=== PATIENT | female | born 1945 | race Caucasian/White ===

== ENCOUNTER 2022-05-26 12:52 | Outpatient (CLI) | payer MEDICARE, SELFPAY ==
--- NOTE | 2022-05-26 13:00 | MR_ITS ---
[facility] [address] [facility] [address] Phone:?[phone] Fax:?[phone] Referring Physician Information: Brannon Rodriguez M.D. [address] [facility] [address] Phone:?[phone] Fax:?[phone] Patient:Timbo Rodney D.O.B:?1945 Sex:?Female Phone:? [facility] MRN:?[id number] Exam Date:?05/26/2022 ? EXAM: MRI EXAMINATION OF THE LEFT HIP CLINICAL INFORMATION: The patient is a 77-year-old with left hip pain. Evaluate for osteoarthritis or degenerative change. PRIOR SURGERY: None reported. COMPARISON STUDIES: Comparison is made to prior radiographs dated 05/13/2022. TECHNICAL INFORMATION: Using a 1.5T MR scanner and a localizing surface coil: 4.0 mm?coronals: PD, T2 4.0 mm?sagittals: PD, T2 3.0 mm?oblique axials: PD 4.0 mm?straight axials: T2FS 4.0 mm?coronals: T1, STIR of pelvis and hips FINDINGS: Hip joint: Moderate osteoarthritic changes of the left hip are present with marrow edema and subcortical cystic change along the articular surfaces. Spurring along the articular margins can be seen. A mild effusion is noted. Articular Cartilage: Full-thickness and near full-thickness chondral loss can be seen along the weightbearing surfaces of the left hip. No well-defined intra- articular loose bodies are noted. Labrum: Broad-based tearing and degeneration of the entire acetabular labrum can be seen. No definite paralabral ganglion cyst formation is noted. Proximal femur: Osteoarthritic changes of the proximal femur can be seen with marrow edema and areas of subcortical cystic change along the articular surfaces. Spurring along the articular margins can be seen. There is no definite evidence for fracture or stress injury. No definite findings are seen to suggest avascular necrosis. Subcortical sclerosis along the articular surfaces can also be seen. Bony prominence of the anterior and anterosuperior aspects of the left femoral head neck junction can be seen, in keeping with cam-type morphology. The alpha angle is approximately 80 degrees. Acetabulum: Osteoarthritic changes of the acetabulum are present with cortical irregularity and subcortical cystic change. Spurring along the articular margins can be seen. No evidence for fracture is identified. There is no definite retroversion or osseous over coverage. There are no definite abnormalities in acetabular morphology. The ligamentum teres is intact. Myotendinous Structures: The greater trochanteric attachments of the gluteus medius and gluteus minimus are normal. The common hamstring tendon origin is normal. The adductors and flexors appear unremarkable. Bursae: There is no evidence of iliopsoas, greater trochanteric or ischial bursal inflammation. Pelvic soft tissues: The soft tissues of the pelvis appear otherwise preserved. There is no evidence of soft tissue mass or adenopathy. No acute intrapelvic abnormalities are seen. Pelvic osseous structures: Large bnjan-mk-ajsu coronal survey images show no evidence of a pelvic fracture or demonstrable stress injury. The sacrum and SI joints appear normal. The symphysis pubis is normal in appearance. Osteoarthritic changes of the right hip are also noted. Lumbosacral junction: Degenerative disc disease can be seen involving the lumbosacral junction. CONCLUSION: 1. Moderate osteoarthritic changes of the left hip as described above. 2. No evidence for fracture or avascular necrosis can be seen. 3. No musculotendinous abnormalities about the left hip are identified. 4. No abnormal bursal fluid collections are seen. 5. Right hip osteoarthritis and degenerative disc disease of the lumbosacral junction are also seen. AEC Electronically signed on 05/27/2022 9:38:00 AM by Aries Ulloa M.D.
--- NOTE | 2022-05-26 13:45 | MR_ITS ---
[facility] [address] [facility] [address] Phone:?[phone] Fax:?[phone] Referring Physician Information: Brannon Rodriguez M.D. [address] [facility] [address] Phone:?[phone] Fax:?[phone] Patient:?Cherelle Rodney D.O.B:?1945 Sex:?Female Phone:? [facility] MRN:?[id number] Exam Date:?05/26/2022 ? EXAM:?MR LUMBAR SPINE WITHOUT CONTRAST CLINICAL INFORMATION: Low back and left hip pain. COMPARISON: None.?CONTRAST:?None.?SEDATION:?None. TECHNICAL INFORMATION: Imaging was performed at [facility]. Sagittal and axial T1/ FSE T2, sagittal STIR and coronal T1 images were obtained through the lumbar spine. INTERPRETATION: L5-S1:?Mild degeneration with 3 mm spondylolisthesis, hypertrophic and fused facet joints and no spinal stenosis or impingement. L4-5: Facet hypertrophy, mild central canal narrowing and bulge, no herniation or neural impingement and patent foramina. L3-4: Bulge and facet hypertrophy with out central stenosis. Ganglia exit without impingement. L2-3: Bulge abuts dural sac without central or foraminal stenosis. Unremarkable facet joints. L1-2: Moderate to severe degeneration, bulge and no central stenosis. Mild facet hypertrophy and patent foramina. T12-L1: Severe disc space narrowing, a flat cranially extruded disc herniation measures 3 mm AP and extrudes cranially for 14 mm. This mildly flattens the dural sac without stenosis or neural impingement. Mild facet degeneration and patent foramina. T11-12: Moderate degeneration, bulge abuts dural sac without stenosis or cord contact and right facet hypertrophy without foraminal stenosis. Osseous Structures: Fat suppressed images are negative for acute or subacute fractures. Modic 1 endplate marrow changes and T11-12 and T12-L1. Paraspinous Soft Tissues: No mass lesions. Conus, Cord and Cauda Equina: Normal position conus and no evidence of intradural mass or arachnoiditis. CONCLUSION: 1. No acute or subacute fractures. 2. Multilevel spondylosis including Modic 1 endplate marrow changes at T11-12 and T12-L1. 3. Flat cranially extruded disc herniation at T12-L1 abuts the dural sac. 4. No significant spinal stenosis. 5. Multilevel chronic hypertrophic facet degeneration, as reported. Electronically signed on 05/27/2022 10:59:00 AM by Joey Moses M.D.
== END 2022-05-26 12:53 | disposition home or self-care (01) ==
PROVIDERS: PCP Internal Medicine; Visit Provider Family Medicine
DX: M54.50 Low back pain, unspecified (principal); M25.552 Pain in left hip; M79.605 Pain in left leg; M47.894 Other spondylosis, thoracic region; M16.12 Unilateral primary osteoarthritis, left hip
CPT/HCPCS: 72148; 73721

== ENCOUNTER 2022-07-13 13:30 | Outpatient (RCR) | payer MEDICARE, SELFPAY ==
--- NOTE | 2022-06-22 12:09 | PT.OPEX ---
PT [place] Outpatient Eval PT [facility] Outpatient Eval Start: 06/22/22 11:06 Freq: Status: Active Protocol: Document 06/22/22 11:06 ARR (Rec: 06/22/22 12:06 ARR [id number]) E-signed By Ninfa Kaminski DPGisella Physical Therapy Outpatient Evaluation Insurance Information Insurance Name Medicare B,[employer] Medical Diagnosis M54.50 low back pain G89.29 other chronic pain M79.605 pain in left leg Treating Diagnosis M48.06 lumbar spinal stenosis M25.552 left hip pain M25.652 left hip stiffness Referring MD Brannon Rodriguez MD ([facility]) Subjective Subjective Onset of pain with back going down leg on the left ongoing off/on the last year or so but worsening over time. Increases in pain: hard to walk, standing, occasional waking at night. Occasional buckling or giving way. Location of pain: low back, L buttock, down to knee. Thought it was the knee that was the problem. When took x-rays found it was the hip. After surgery will be doing therapy as well. PMHx: hysterectomy, L TKA, lung surgery. Imaging as noted below. SUYAPA scheduled for 07/20. Pt notes having torn RC on R side - can't be repaired, recommended to have total shoulder. -L hip x-ray 05/13/22: severe bilateral hip osteoarthrosis with cgnt-he-dsgn joint space loss. Subchondral sclerosis. Subchondral cystic change greater on the left than the right. Osteophytes around the femoral head/neck junction and lateral acetabulum. -Spine x-rays 05/13/22: severe bilateral hip osteoarthrosis with oefa-on-kbyt joint space loss. Subchondral sclerosis. Subchondral cystic change greater on the left than the right. Osteophytes around the femoral head/neck junction and lateral acetabulum. -LS MRI 05/26/22: severe bilateral hip osteoarthrosis with pxyz-ic-iywz joint space loss. Subchondral sclerosis. Subchondral cystic change greater on the left than the right. Osteophytes around the femoral head/neck junction and lateral acetabulum. Objective Other/Pertinent Objective Eval: 06/22/22 Posture: Elevated IC on L by 2 thumbwidths, loss of LS lordosis, inc'd TS kyhposis SLS (30 sec): <10 sec ea side with moderate pelvic drop on L Gait: shuffling gait pattern with dec'd heel-toe pattern, bilat knee flexion throughout gait cycle, reduced hip ext bilat. Antalgic gait RANGE OF MOTION: Lumbar ROM: -Flx: fingertips to shins, dec 'd mobility through LS/TS no pain -Ext: 75% limitation with no pain end ranges -R Rot: 50% limitation in mvmt -L Rot:50% limitation in mvmt LE ROM (R/L): -Hip ER90: 50 R / 30 L -Hip IR90: 10 R / 0 L -Hip flex: 120 R / 95 L -hip ext: passively in sidelying lacking nearly 10* on R/L -Hip Abd supine: 30* L, 50 R STRENGTH: LE Strength (R/L) -Glut medius: 2+ bilat SPECIAL TESTS LE Flexibility (R/L) -Hamstring: neg bilat -Piriformis: pos bilat -Prone knee bend: 90* on L, > 110 on R -Hip abd: pos bilat -Quincy Test: pos bilat in sidelying - Rama?s Test pos bilat in sidelying Hip (R/L): -JASSI: pos bilat -Hip Scour: pos bilat -FADIR: pos bilat Functional Test Performed & Score LEFS 20/80 Assessment Assessment/Impression Pt is a 77 y/o female who presents with concerns of L hip pain, low back pain, and pain down L leg to knee. Signs and symptoms likely multifactorial from significant loss of hip ROM following capsular pattern ( lacking 10* from extension, 30 * ER, and flexion to 95), in addition to LS stiffness secondary to stenosis with loss of AROM following capsular pattern greatest in extension, rotation and side bending. Pt is scheduled for SUYAPA 07/20/22. Patient also has notable objective findings including glut medius weakness , gait abnormalities, hip flexor/quad tightness also likely contributing to the problem. Patient is a good candidate for skilled therapy to target deficits described above. Skilled PT intervention is necessary for use of therapeutic exercise manual therapy, neuromuscular re- education, gait training, and therapeutic activity. Functional impairments include difficulty with: walking and standing. See appropriate sections of PT eval for complete list of goals and POC . D/C plan and criteria is for pt to achieve the goals as listed below or until max rehab potential is met. Pt was agreeable with plan of care and goals established. Plan of Care Physical Therapy Goals STG (within 2 visits) 1) Pt will initiate HEP without increased pain/ symptoms LTG (within 5 visits) 1) Pt will be indep with HEP for nursing home management of pain/symptoms 2) Pt will report at least 40% improvement in pain/symptoms since start of PT for return to PLOF 3) Pt will demonstrate improved prone knee flexion to at least 100* on L for improved mobility for gait 4) Pt will demonstrate LEFS score >29/80 Treatment Plan/Direct Interventions Electrical Stimulation,Gait Training,Joint Mobilization, Manual Therapy,Neuromuscular Re-ed,Therapeutic Activities, Therapeutic Exercises,Traction (Mechanical) Frequency/Duration 1x/wk x 5 visits in 60 days Patient Will Be Discharged From Therapy Skills [facility],Independent w/ HEP Evaluation Billing Untimed Code Treatment Minutes 25 Complexity Moderate Certification Information Initial Certification Date 06/22/22 Ending Certification Date 08/21/22 Provider Signature Shows Agreement With POC & Medical Necessity Physician Signature & Date Requested Please Sign/Date Here Physician Comment/Change : Physician NPI Number #
== END 2022-07-13 14:10 | disposition home or self-care (01) ==
PROVIDERS: PCP Internal Medicine; Visit Provider Family Medicine
DX: M16.12 Unilateral primary osteoarthritis, left hip (principal); Z51.89 Encounter for other specified aftercare
CPT/HCPCS: 97110; 97162

== ENCOUNTER 2022-07-19 09:26 | Outpatient (CLI) | payer MEDICARE, SELFPAY | END 2022-07-19 09:27 | disposition home or self-care (01) | PROVIDERS: PCP Internal Medicine; Visit Provider Orthopaedic Surgery Sports Medicine | DX: Z01.818 Encounter for other preprocedural examination (principal) | CPT/HCPCS: 36415; 86850; 86900; 86901 ==

== ENCOUNTER 2022-07-20 06:18 | Day surgery (SDC) | payer MEDICARE, SELFPAY ==
[2022-07-20] VITALS (28 sets, daily range): BP systolic 103–184; BP diastolic 50–89; PULSE 50–76; RESP 14–20; TEMP 35.9–36.8; O2SAT 91–98; BMI 31.7
[2022-07-20] MEDS: ACETAMINOPHEN 500 MG TABLET 1000 MG PO ×3 (06:40→20:25)
[2022-07-20] MEDS: CELECOXIB 200 MG CAPSULE PO ×2 (06:40→20:25)
[2022-07-20] MEDS: OXYCODONE (CR) 10 MG TAB.ER.12H PO (06:40)
[2022-07-20] MEDS: SODIUM CHLORIDE 0.9 % (FLUSH) 10 ML SYRINGE IVF (06:45)
[2022-07-20] MEDS: LACTATED RINGERS 1000 ML 1,000 ML 100 ML IV ×2 (06:45→08:32)
[2022-07-20] MEDS: MIDAZOLAM HCL 1 MG/ML inj IVP (07:07)
[2022-07-20] MEDS: fentaNYL 100 MCG/2 ML inj IVP (07:07)
--- NOTE | 2022-07-20 07:15 | P.NB_ITS ---
Nerve Block Nerve Block Time Seen by Provider: 07:13 Date Seen: 07/20/22 Type of block requested by surgeon for post-operative analgesia: KAYCEE/LFCN Side: left Time out performed: Yes Verification of patient name: Yes Verification of date of : Yes Site marking: site marked Name of person performing procedure: Terrell Continuous monitoring Was continuous monitoring of O2 sat, B/P, finishing room supervisor, recorded every 15 minutes?: Yes Procedure Checklist: sterile prep, needles and gloves Ultrasound guided. Images saved: Yes Medications given in 5ml increments after negative aspiration: Ropivicaine %: 0.5 mL: 30 Needle gauge: 20 Decadron (mg): 10 Precedex (mcg): 25 Patient tolerated procedure well: Yes Additional comments: Needle noted below psoas tendon needle noted adjacent to LFCN Block Charges Block Charge (with Pro Fee): Other Periph Nerve Block Use of Ultrasound Machine for Block: Yes- US Guidance/pain block
--- NOTE | 2022-07-20 07:16 | W.ANESCHARGE ---
Anesthesia Charges Start Date/Time Anesthesia Start Date: 07/20/22 Anesthesia Start Time: 07:22 Stop Date/Time Anesthesia Stop Date: 07/20/22 Anesthesia Stop Time: 09:49 Summary Extremes of Age - Over 70 or under 1: MDA
--- NOTE | 2022-07-20 07:18 | CRLHL7_ITS ---
For Patients: As a result of the Cures Act, medical imaging exams and procedure reports are released immediately into your electronic medical record. You may view this report before your referring provider. If you have questions, please contact your health care provider. Indication: s/p Total hip arthroplasty Technique: AP hip center pelvis and lateral view left hip Findings/Impression: Hardware from a left total hip arthroplasty is in satisfactory position. Bone alignment is normal. No sign of acute fracture. Postop changes are within normal limits. Degenerative joint disease right hip. Dictated by Perry Grande MD @ 07/20/2022 10:53:51 AM (Electronically Signed)
--- NOTE | 2022-07-20 07:18 | SUR.PREOP ---
TIME?OUT:?07 PT/OLEGARIO RN/Paul SHELL MDA?VERIFICATION?OF?SURGICAL?SITE,?PROCEDURE,?AND?CONSENT OBTAINED?PRIOR?TO?INVASIVE?PROCEDURE.
--- NOTE | 2022-07-20 07:30 | CRLHL7_ITS ---
For Patients: As a result of the Cures Act, medical imaging exams and procedure reports are released immediately into your electronic medical record. You may view this report before your referring provider. If you have questions, please contact your health care provider. Indication: Hip replacement surgery Technique: AP hip fluoroscopic image. Fluoroscopy time 39.1 seconds. Findings/Impression: Hardware from a left total hip arthroplasty is in satisfactory position. Dictated by Perry Grande MD @ 07/20/2022 10:53:12 AM (Electronically Signed)
[2022-07-20] MEDS: CEFAZOLIN 2 GM in 0.9 % SODIUM CHLORIDE Mini-bag 100 ML IVPB (07:34)
[2022-07-20] MEDS: TRANEXAMIC ACID 100 MG/ML INJ 1000 MG IV (07:35)
--- NOTE | 2022-07-20 09:07 | P.ORPRC_ITS ---
Procedure Note Date of procedure: 07/20/22 Procedure: PREOPERATIVE DIAGNOSIS: 1. Left hip osteoarthritis, severe, primary POSTOPERATIVE DIAGNOSIS: 1. Left hip osteoarthritis, severe, primary PROCEDURE: 1. Left total hip arthroplasty-anterior approach 2. 86421 - intraoperative fluoroscopy up to 1 hour. SURGEON: Salvatore Rosado MD. CONVEYOR WEIGHER OPERATOR: Franklin Lane PA-C; ESTELLE Mcare - Of note, a skilled assistant corporate secretary was critical for this case to aid in patient positioning, tissue retraction, limb manipulation/positioning, dislocation/relocation, patient safety, and closure. ANESTHESIA: Spinal anesthetic EBL: 300 mL IMPLANTS: DePuy J&J uncemented total hip [place] cup size 48, hole eliminator, +0 neutral liner Actis stem, high offset, size 1 +1 mm ceramic 32mm head. COMPLICATIONS: None evident INDICATIONS: The patient is a pleasant 77-year-old female who has experienced severe left hip pain and difficulty bearing weight. Workup included x-rays which revealed severe osteoarthrosis in the hip. Given the deformity, the dysfunction, and the pain, as well as the failure of nonoperative management, recommendation was made for surgery. FINDINGS: Moderate effusion upon entering the joint. Full-thickness broad chondral loss throughout the femoral head. Subchondral sclerotic/dense bone in the acetabulum. Perimeter osteophytes around the acetabulum. DESCRIPTION OF PROCEDURE: Following a thorough discussion of risks, benefits, and alternatives consent was obtained and the left hip was marked. The patient was brought to the operating room and placed supine on the operating table. Induction of anesthesia was undertaken. 1 g IV Ancef and 1 g tranexamic acid was administered within 1 hr of incision preoperatively. Proper time-out was performed identifying proper patient, site, procedure. The operative extremity was prepped and draped in the appropriate sterile fashion using ChloraPrep after the patient was positioned on the [place] table with head in neutral alignment and all bony prominences well padded. C-arm fluoroscopic imaging was utilized to confirm proper pelvis rotation and position, and to get true AP films of both the contralateral left, and the affected left hip. This is for comparison. A longitudinal incision was made starting approximately 1 cm distal to the ASIS, and 3-4 cm lateral. The incision was extended distally aiming toward the lateral border the patella. Sharp incision through skin and bovie cautery through the subcutaneous tissue allowed identification of the TFL fascia. This was sharply divided, and the fascia bluntly released from the muscle fibers as we dissected medial. Upon coming to the medial border, we were able to retract the TFL laterally, and penetrated the deeper fascia and identify the crossing circumflex vessels. These were ligated/cauterized. The rectus was elevated from the capsule, and retractors placed laterally and medially along the femoral neck to help with visualization of the capsule. We then performed an inverted T capsulotomy. The capsule was tagged for later repair. Retractors were placed inside the capsule. The femoral neck was visualized after releasing medially down to the lesser trochanter, along the saddle laterally, and up onto the acetabulum. The femoral neck cut was made in line with our preoperative templating. The head was removed in a single piece, and sized. We turned our attention to acetabular preparation. Initially, the labrum was resected from around the perimeter, the pulvinar was excised, allowing us to visualize the false wall. We started the reaming with a 43 mm reamer. This was medialized down to the true wall. We then enlarged our reamers sequentially up to one size less than the selected cup size. We trialed at the same size and found it to have an excellent fit. The selected cup was then opened, inserted, and impacted in line with the goal of 40-45? of abduction, and 20-25? of anteversion. This was confirmed on C-arm fluoroscopic imaging to be in the appropriate/goal position. Once the cup was placed we placed a hole eliminator and a liner consistent with preop planning. Attention was turned to the femoral preparation. The limb was extended, externally rotated, and adducted. The posteromedial capsule was released, as retractors were placed allowing excellent access to the proximal femur. Initially a snuff box finisher was followed by canal finder followed by various broaches. We broached sequentially up to size noted above, found it to have excellent rotational control, and trialing various heads and necks, revealed that appropriate neck offset, and the above noted head size provided the greates t stability, and scientology of length, and offset. C-arm fluoroscopic imaging confirmed position of the stem, as well as leg lengths, which were compared with the pre procedure all fluoroscopic images. Trial implants were removed, the real femoral stem inserted, as was the ceramic head. After reducing, the leg was placed through range of motion and stability was confirmed anterior, posterior, and lateral. A 3 min Betadine soak was then performed, and thorough irrigation with normal saline followed. Closure of the capsule was performed with #1 PDS. Bleeding was confirmed to be controlled at this stage, and the TFL fascia was closed with #0 strata fix. Subcutaneous, and subcuticular closure was performed with 2-0 Vicryl and 4-0 Monocryl, respectively. Dressings were applied, and the patient was awoken from anesthesia and transferred the PACU in stable condition. A skilled assistant corporate secretary was critical for this case to aid in patient positioning, tissue retraction, proximal femur exposure, limb manipulation/positioning, dislocation/relocation, patient safety, and closure. PLAN: 1. Weight bear as tolerated operative extremity. 2. 23 hr perioperative antibiotics. 3. Ice. 4. PT/OT consults for ambulation assistance/mobility education. 5. Social work consult for discharge planning. 6. DVT prophylaxis with at SCDs, Jaswinder Gerardoe, and Xarelto x5 days followed by aspirin for a total of 1 month..
--- NOTE | 2022-07-20 09:49 | W.ANESCHARGE ---
Anesthesia Charges Start Date/Time Anesthesia Start Date: 07/20/22 Anesthesia Start Time: 07:22 Stop Date/Time Anesthesia Stop Date: 07/20/22 Anesthesia Stop Time: 09:49 Summary Extremes of Age - Over 70 or under 1: MANUFACTURING SCHEDULER
--- NOTE | 2022-07-20 11:48 | PM.IMPN1 ---
Progress Note: A&P Assessment and plan (1) Status post total replacement of left hip: Problem details: SUYAPA-AA (07/20/2022, Dr. Rosado) Status: Acute Plan 1. s/p LTHA; pain control; diet; dvt ppx per surgery 2. Hx of GERD; continue PPI 3. Hx of Depression; continue cymbalta 4. Hx of QTc prolongation; will place on tele Subjective Date Seen: 07/20/22 Interval history: PREOPERATIVE DIAGNOSIS:? 1.? Left hip osteoarthritis, severe, primary PROCEDURE: 1.? Left total hip arthroplasty-anterior approach SURGEON:? Salvatore Rosado MD. ANESTHESIA:? ? ? Spinal anesthetic EBL: ? 300 mL The patient is doing well following surgery denies chest pain and sob denies nausea and vomiting tolerating diet Exam Narrative: Exam Narrative: Gen: no acute distress HEENT: NCAT EOMI mmm Neck: Supple CV: RRR normal s1 s2 Lungs: CTAB Abd: Soft,nt, nd Neuro: Alert, oriented, CN grossly intact; nonfocal screening?exam Psych: appropriate affect MSK: age appropriate muscle mass Skin; Warm, dry no rash on face Const: Vital Signs, click to edit/add: Vital Signs - 24 hr 07/20/22 06:54 07/20/22 07:05 07/20/22 07:10 Temperature 97.9 F Pulse Rate 61 64 59 L Pulse Rate [Pulse Oximeter] Respiratory Rate 18 16 16 Blood Pressure 184/66 H 161/74 H 132/63 Blood Pressure [Ri t Arm] Pulse Oximetry 98 98 98 Oxygen Delivery Me thod Room Air Nasal Cannula Nasal Cannula Oxygen Flow Rate 2 2 07/20/22 07:15 07/20/22 09:46 07/20/22 09:50 Temperature 96.7 F L Pulse Rate 56 L 59 L 56 L Pulse Rate [Pulse Oximeter] Respiratory Rate 16 16 16 Blood Pressure 112/62 103/50 L 107/53 L Blood Pressure [Ri ght Arm] Pulse Oximetry 96 98 97 Oxygen Delivery Me thod Nasal Cannula Room Air Room Air Oxygen Flow Rate 2 07/20/22 09:55 07/20/22 10:00 07/20/22 10:05 Temperature Pulse Rate 56 L 56 L 57 L Pulse Rate [Pulse Oximeter] Respiratory Rate 16 14 18 Blood Pressure 107/58 L 110/59 L 104/60 Blood Pressure [Ri ght Arm] Pulse Oximetry 94 92 95 Oxygen Delivery Me thod Room Air Room Air Room Air Oxygen Flow Rate 07/20/22 10:10 07/20/22 10:48 07/20/22 11:00 Temperature 97.4 F L Pulse Rate 56 L Pulse Rate [Pulse Oximeter] 58 L Respiratory Rate 14 18 16 Blood Pressure 109/54 L Blood Pressure [Ri ght Arm] 121/64 Pulse Oximetry 94 95 95 Oxygen Delivery Me thod Room Air Room Air Room Air Oxygen Flow Rate 2 07/20/22 11:01 07/20/22 10:20 07/20/22 10:20 Temperature 96.6 F L 96.6 F L Pulse Rate 56 L Pulse Rate [Pulse Oximeter] 50 L 57 L Respiratory Rate 16 18 18 Blood Pressure Blood Pressure [Ri ght Arm] 133/77 127/69 127/69 Pulse Oximetry 95 95 Oxygen Delivery Me thod Room Air Room Air Room Air Oxygen Flow Rate 2 07/20/22 10:20 07/20/22 11:15 07/20/22 11:33 Temperature 96.6 F L Pulse Rate Pulse Rate [Pulse Oximeter] 57 L 58 L 54 L Respiratory Rate 18 16 16 Blood Pressure Blood Pressure [Ri ght Arm] 127/69 137/72 134/77 Pulse Oximetry 95 91 93 Oxygen Delivery Me thod Room Air Room Air Room Air Oxygen Flow Rate 2
[2022-07-20] MEDS: LACTATED RINGERS 1000 ML 1,000 ML 75 ML IV (13:55)
[2022-07-20] MEDS: CEFAZOLIN 1 GM in 0.9 % SODIUM CHLORIDE Mini-bag 100 ML IVPB ×2 (13:56→21:07)
--- NOTE | 2022-07-20 18:34 | PC.NURSE ---
End of shift. pt has been very pleasant. no pain, left leg is still numb,. we did get her up with PT and 2 assist and left leg did give out. she is a turn and pivot only leg is getting stronger. IV is patent. she is voiding with no problems. teds are on and off. Plexi are on. IS to 1500. she is a fall risk and alarms are on. dressing is C/D/I active is on/
[2022-07-20] MEDS: SENNOSIDES 1 TAB TABLET 2 TAB PO (20:26)
[2022-07-21 03:00] VITALS: BP 133/60; PULSE 65; RESP 18; O2SAT 94
[2022-07-21] MEDS: CEFAZOLIN 1 GM in 0.9 % SODIUM CHLORIDE Mini-bag 100 ML IVPB (05:19)
[2022-07-21 06:25] LABS: Hematocrit 27.2 % (33.0-51.0); Hemoglobin* 8.8 gm/dL (12.0-16.0); Immature Granulocytes Abs Auto 0.05 K/uL (0.00-0.30); Immature Granulocytes Pct Auto 0.5 %; Lymphocytes Percent Auto 16.9 % (20-44); Mean Corpuscular HGB Conc 32 gm/dL (32-36); Mean Corpuscular Hemoglobin 27 pg (26-34); Mean Corpuscular Volume 83 fL (80-100); Monocytes Percent Auto 9.5 % (0.0-11.0); Neutrophils Percent Auto 73.1 % (42.0-72.0); Platelet Count* 206 K/uL (140-440); Red Blood Count 3.28 m/uL (4.00-5.20); Slide Review Reflex No; White Blood Count* 10.02 K/uL (4.50-11.00)
[2022-07-21 06:37] LABS: Potassium* 4.1 mmol/L (3.6-5.1); Sodium* 137 mmol/L (135-149)
[2022-07-21 06:40] LABS: Creatinine* 0.6 mg/dL (0.5-1.5); Est. Creatinine Clearance* 52.87; Estimated Glomerular Filt Rate 94 ml/min
[2022-07-21 06:41] LABS: Blood Urea Nitrogen* 15 mg/dL (7-30)
--- NOTE | 2022-07-21 06:48 | PC.NURSE ---
END OF SHIFT NOTE: PT A&Ox4, PLEASANT AND COOPERATIVE WITH CARES. DENIES CP, SOB, N/V. AMBULATES WITH WALKER, GB, SBA/A1. VSS ON RA; AFEBRILE. LEFT HIP DRESSING CDI WITH ACTIVE ICE APPLIED.?PT RATES LEFT HIP PAIN 0-5/10 WITH RELIEF FROM SCHEDULED MEDS. OCCASIONAL URINARY URGE INCONTINENCE.?BED ALARM ON AND CALL LIGHT WITHIN PT?S REACH.?
[2022-07-21] MEDS: OMEPRAZOLE 20 MG CAPSULE DR PO (06:53)
[2022-07-21] MEDS: ACETAMINOPHEN 500 MG TABLET 1000 MG PO (06:53)
[2022-07-21 07:00] VITALS: BP 139/79; PULSE 61; RESP 16; O2SAT 94
[2022-07-21] MEDS: RIVAROXABAN 10 MG TABLET PO (08:27)
[2022-07-21] MEDS: CELECOXIB 200 MG CAPSULE PO (08:28)
[2022-07-21] MEDS: DULOXETINE 30 MG CAPSULE DR 60 MG PO (08:28)
[2022-07-21] MEDS: SENNOSIDES 1 TAB TABLET 2 TAB PO (08:29)
[2022-07-21] MEDS: OXYCODONE 5 MG TABLET PO (08:34)
[2022-07-21 10:00] VITALS: PULSE 75
--- NOTE | 2022-07-21 10:40 | PC.SOCIAL ---
Met with pt and pt's daughter in pt's room to discuss discharge plans. Pt and pt's daughter confirmed that they are prepared for pt to recover at home. Pt has walker bedside and plans to use the walker. Pt is feeling well given the circumstance. Pt does not need any new information. Informed pt she may contact social work if she has any further questions. Social work will follow up as necessary.
--- NOTE | 2022-07-21 12:43 | PC.NURSE ---
Discharge.? pt is very pleasant. Left hip pain rating 0-4/10, pain controlled with PO pain meds. ? pt worked with PT and OT today. Assist of 1 w/ walker and gait belt. Saline was patient and D/C intact.? she is voiding with no problems.? teds are on and off.? IS to 1999.? she is a fall risk and alarms are on.? dressing is C/D/I. Went over discharge packet with patient and daughter. Pt signed forms. D/C with wheelchair. Personal belonging form not found. Left with all items and paperwork. ?
--- NOTE | 2022-07-21 13:57 | PM.ORPN ---
Subjective Subjective Date Seen: 07/21/22 Principal diagnosis: Status postop day 1, left total hip arthroplasty - anterior approach Interval history: Patient reports doing well. No acute events over night. Pain managed with scheduled /PRN medications and ice. DVT prophylaxis rivaroxaban, bilateral knee high Jaswinder stockings, and SCDs. Denies fevers, chills, aches, N/V, CP, SOB/PEREZ, tachycardia, or lightheadedness. Ortho Exam Narrative Exam Narrative: -Patient appears comfortable in recliner; no apparent acute distress -Alert and oriented times 3 -Operative hip swollen; soft tissues supple; no obvious erythema. Ecchymosis minimal. Warmth appropriate -Surgical dressing clean, dry, intact; no obvious drainage, no erythematous streaking peripheral to the bandage -Bilateral calves soft and supple; no significant swelling, edema, tenderness, erythema, discoloration, warmth, or palpable cords -2+ DP/PT pulses, intact dermatomes and myotomes distally (5/5 strength). No numbness about the lateral femoral cutaneous nerve distribution. Const Vital Signs, click to edit/add: Vital Signs - 24 hr 07/20/22 14:01 07/20/22 15:05 07/20/22 15:05 Temperature 97.0 F L Pulse Rate 73 Pulse Rate [Pulse Oximeter] 72 73 Respiratory Rate 16 Blood Pressure [Left Arm] Blood Pressure [Right Arm] 135/78 Pulse Oximetry 94 Oxygen Delivery Method Room Air 07/20/22 15:08 07/20/22 16:00 07/20/22 19:48 Temperature 97.0 F L 97.2 F L Pulse Rate 60 Pulse Rate [Pulse Oximeter] 58 L 64 Respiratory Rate 16 16 Blood Pressure [Left Arm] Blood Pressure [Right Arm] 150/77 H 155/89 H Pulse Oximetry 94 95 Oxygen Delivery Method Room Air Room Air 07/20/22 19:00 07/20/22 22:55 07/20/22 23:00 Temperature 98.2 F Pulse Rate Pulse Rate [Pulse Oximeter] 58 L 76 76 Respiratory Rate 20 20 20 Blood Pressure [Left Arm] Blood Pressure [Right Arm] 144/69 H 140/66 H Pulse Oximetry 95 95 Oxygen Delivery Method Room Air Room Air 07/21/22 03:00 07/21/22 07:00 07/21/22 10:00 Temperature Pulse Rate 75 Pulse Rate [Pulse Oximeter] 65 61 Respiratory Rate 18 16 Blood Pressure [Left Arm] 133/60 139/79 Blood Pressure [Right Arm] Pulse Oximetry 94 94 Oxygen Delivery Method Room Air Room Air Assessment and Plan Assessment and plan (1) Status post total replacement of left hip: Problem details: POD 1 left SUYAPA-AA (07/20/2022, Dr. Rosado) Status: Acute (2) Acute blood loss anemia: Problem details: Hemoglobin 8.8, asymptomatic. Comments recent workup for low hemoglobin, on iron supplementation Status: Acute Plan - Complete 23 hour perioperative antibiotics. - PT/OT consult for education and assistance. - Social work consult for discharge planning - Prescribed analgesics as needed - DVT prophylaxis: Rivaroxaban, bilateral knee high Jaswinder Hose stockings and SCDs - Anticipation is for discharge to home with family 07/21/2022 if the patient remains medically stable, pain is controlled, and they are safe with mobilization.
--- NOTE | 2022-07-21 14:05 | PM.DS1 ---
DS: Providers Provider Date Seen: 07/21/22 Date of admission: Med/Surg Recovery 07/20/2022 Primary care physician: Denise Hays MD Consults: 07/20/22 10:27 Consult to Occupational Therapy [CONS] Routine Comment: Reason(s) for OT Consult:: ADLs Prior to Discharge Any Restrictions?:: No Restrictions Comment: Consult to Physical Therapy [CONS] Routine Comment: Ambulate in the [place] today Reason(s) for PT Consult:: Evaluate and Treat Any Restrictions?:: No Restrictions Comment: Nursing Activity Consult to Physician [CONS] Routine Comment: Consulting Provider: Hospitalists Has provider been notified: No Consult to In Home Baby Sitter [CONS] Routine Comment: Reason for Consult:: Discharge Planning Needs Attending Physician on discharge: Salvatore Rosado MD Date of Discharge: 07/21/22 DS: Diagnosis Discharge Diagnosis (1) Status post total replacement of left hip: Status: Acute Problem details: POD 1 left SUYAPA-AA (07/20/2022, Dr. Rosado) (2) Acute blood loss anemia: Status: Acute Problem details: Hemoglobin 8.8, asymptomatic. Comments recent workup for low hemoglobin, on iron supplementation DS: Summary Hospital Course Hospital Course: The patient has a history of left hip osteoarthritis, primary, severe. After appropriate preoperative evaluation, the patient underwent left total hip arthroplasty. Postoperatively given anticoagulation for deep vein thrombosis prophylaxis. They progressed to PT/OT and were felt ready and prepared for discharge to home with appropriate pain medication and anticoagulation medications. Status at Discharge Functional status at discharge: uses cane/walker Overall status at discharge: patient is progressing back to baseline Time Spent with Patient Time attestation: Total time spent providing and/or coordinating discharge services: Time spent: Less than 30 minutes Exam Const: Vital Signs, click to edit/add: Vital Signs - 24 hr 07/20/22 15:05 07/20/22 15:05 07/20/22 15:08 Temperature 97.0 F L Pulse Rate 73 Pulse Rate [Pulse Oximeter] 73 58 L Respiratory Rate 16 Blood Pressure [Le ft Arm] Blood Pressure [Ri ght Arm] 150/77 H Pulse Oximetry 94 Oxygen Delivery Me thod Room Air 07/20/22 16:00 07/20/22 19:48 07/20/22 19:00 Temperature 97.2 F L 98.2 F Pulse Rate 60 Pulse Rate [Pulse Oximeter] 64 58 L Respiratory Rate 16 20 Blood Pressure [Le ft Arm] Blood Pressure [Ri ght Arm] 155/89 H 144/69 H Pulse Oximetry 95 95 Oxygen Delivery Me thod Room Air Room Air 07/20/22 22:55 07/20/22 23:00 07/21/22 03:00 Temperature Pulse Rate Pulse Rate [Pulse Oximeter] 76 76 65 Respiratory Rate 20 20 18 Blood Pressure [Le ft Arm] 133/60 Blood Pressure [Ri ght Arm] 140/66 H Pulse Oximetry 95 94 Oxygen Delivery Me thod Room Air Room Air 07/21/22 07:00 07/21/22 10:00 Temperature Pulse Rate 75 Pulse Rate [Pulse Oximeter] 61 Respiratory Rate 16 Blood Pressure [Le ft Arm] 139/79 Blood Pressure [Ri ght Arm] Pulse Oximetry 94 Oxygen Delivery Ny thod Room Air DS: Data Data Completed and Pending Labs on day of discharge: Labs from last 24 hours 07/21/22 07/21/22 05:45 05:45 WBC 10.02 RBC 3.28 L Hgb 8.8 L Hct 27.2 L MCV 83 MCH 27 MCHC 32 RDW Coeff of Aly 16.0 H Plt Count 206 Neut % (Auto) 73.1 H Lymph % (Auto) 16.9 L [place] % (Auto) 9.5 Eos % (Auto) 0.0 Baso % (Auto) 0.0 Neut # (Auto) 7.30 H Lymph # (Auto) 1.70 [place] # (Auto) 1.00 H Eos # (Auto) 0.00 Baso # (Auto) 0.00 Sodium 137 Potassium 4.1 BUN 15 Creatinine 0.6 Estimated Creat Clear 52.87 Estimated GFR 94 Discharge Plan Discharge Disposition: Home, Self-Care Discharging Surgeon: Salvatore Rosado Follow-Up Appointment: 1 week PO with Franklin SANTANA Prescriptions: New sennosides-docusate sodium [Senna-S] 8.6-50 mg tablet 1 - 4 tab-cap PO BID PRN (Reason: constipation) Qty: 60 0RF Rx Instructions: Hold medication if experiencing loose stools. aspirin 81 mg tablet,delayed release (DR/EC) 81 mg PO BID Qty: 50 0RF Rx Instructions: Medication to help prevent blood clots postoperatively; take TWICE daily. oxycodone 5 mg tablet 2.5 - 5 mg PO Q4-6H MDD 6 PRN (Reason: pain) Qty: 42 0RF Rx Instructions: Take as needed for postop pain: 2.5mg mild pain, 5mg moderate-severe pain; wean as tolerated. rivaroxaban 10 mg tablet 10 mg PO DAILY Qty: 4 0RF Rx Instructions: Medication for deep vein clot prevention post surgery. Complete this medication before starting Aspirin. Continued omeprazole 20 mg capsule,delayed release(DR/EC) 20 mg PO DAILY duloxetine 60 mg capsule,delayed release(DR/EC) 60 mg PO DAILY multivitamin [Daily Multi-Vitamin] Tablet 1 tab PO DAILY acetaminophen [8 Hour Pain Reliever] 650 mg tablet extended release 1,300 mg PO Q8H PRN Activity Level: Activity as Tolerated, Weight Bearing as Tolerated, Use Cane and Use Walker Activity Detail: Wound: ?Do not remove original dressing; we will remove this at first postop visit in 1 week. Only remove dressing if integrity is in question. ?No immersing wound in water; showering okay; light scrub with your hand and body soap, rinse, dab dry ?Sutures are under the skin, will dissolve; allow surgical glue to come off naturally; do not scrub the wound or apply ointments/lotions ?Call our office with any redness that streaks, excessive drainage from the wound, or wound gapping. Ice/Elevate: ?Ice as needed for swelling and discomfort (cryocuff or ice pack); elevate frequently above the heart GAIL socks: ?Wear for 1 month, remove for 1 hour 3 times per day ?These are frustrating to take on/off, but are important for blood clot prevention for 1 month after surgery Blood Clot Prevention (DVT): ?Medication: Rivaroxaban, and transition to 81 mg aspirin by mouth twice daily (total one month of protection). Driving: ?Do not drive while taking narcotic pain medication ?Anticipate 4-6 weeks no driving if operative leg is driving leg Dental: ?No elective dental work for 6 months post-op. If there is an urgent/emergent dental need, contact our office for an antibiotic prescription. Smoking/Alcohol: ?Do not smoke; do no drink alcohol especially when taking postoperative oral narcotic medication Seek Care from you Primary Care Provider if you experience the following issues in the postoperative phase and beyond: ?Bacterial infections such as: pneumonia, bacterial skin infection (cellulitis), UTI, high fever, chills unrelated to the operative body part - call your primary care physician urgently for treatment in hopes to protect your health and the metal implant. Referrals: ?PT, OT per patient preference - evaluate treat total hip arthroplasty protocol (gait training, ROM, ADLs) Follow up: ?Ortho surgeon follow-up in 6 weeks; repeat radiographs AP pelvis, cross-table lateral operative hip ?PA-C visit in 1 week *If there are any acute concerns regarding your surgery, please call our orthopedic clinic ([phone]) Discharge Diet: Regular Patient Instructions: Aspirin (By mouth), Laxative, Stimulant (By mouth), Oxycodone, Rapid Release (By mouth), Rivaroxaban (By mouth), Surgical Site Infections (DC), Total Hip Replacement (DC) Forms: Work/School Release Follow-up: Denise Hays MD [Primary Care Provider] - Franklin Lane PA-C [Physician Helpdesk Administrator] - 07/28/22 9:10 am (Follow up with Dr. Lane at [facility]) Discharge Orders: Discharge Order (Routine); Ordered 07/21/22 Ordered By: Franklin Lane
== END 2022-07-21 11:50 | disposition home or self-care (01) ==
LOC: OR 06:19 → MEDSURG 06:24
PROVIDERS: PCP Internal Medicine; Visit Provider Orthopaedic Surgery Sports Medicine
PROC: (CPT 27130; principal; 2022-07-20 07:30)
DX: M16.12 Unilateral primary osteoarthritis, left hip (principal); D62 Acute posthemorrhagic anemia; K21.9 Gastro-esophageal reflux disease without esophagitis; F32.A Depression, unspecified; I45.81 Long QT syndrome
CPT/HCPCS: 27130; 01214; 36415; 73501; 76000; 76942; 82565; 84132; 84295; 84520; 85025; 97110; 97116; 97162; 97165; 97530; 97535; 99100; A9270; C1776; J0690; J1100; J2250; J2370; J2704; J2795; J3010; J7120

== ENCOUNTER 2022-08-31 11:15 | Outpatient (RCR) | payer MEDICARE, SELFPAY ==
--- NOTE | 2022-07-13 15:37 | PT.OPEX ---
PT [place] Outpatient Eval PT [facility] Outpatient Eval Start: 07/13/22 14:03 Freq: Status: Active Protocol: Document 07/13/22 14:06 SURJIT (Rec: 07/13/22 15:37 SURJIT [id number]) E-signed By Kellen Gomez PT Physical Therapy Outpatient Evaluation Insurance Information Insurance Name [employer] Medical Diagnosis LEFT HIP OA M16.12 Treating Diagnosis LEFT HIP PAIN M25.552 DIFFICULTY AMB M26.2 LEFT HIP WEAKNESS S76. 092A Subjective Pain Comments 5-7/10 DEPENDING ON THE ACTIVITY. Date of Last Physician Visit 06/07/22 Date of Surgery (If applicable) 07/20/22 Current Work Status Retired Preferred Name ERIN Precautions Treatment Precautions/Contraindications ANTERIOR HIP PRECAUTIONS: NO HIP ER >NEUTRAL, NO HIP EXT > NEUTRAL Therapy Limitations/Systems Review Not Limited Objective Other/Pertinent Objective KNEE ROM Flexion: WNL Extension: WNL HIP ROM Flexion: 105 Extension: 10 Internal Rotation: 30 External Rotation 12 Abduction 35 LLE MMT: Hip flexion: L 4/5 Hip abduction: L 4-/5 Hip extension: L 4-/5 Knee flexion: L4 /5 Knee extension: L 4/5 SPECIAL TEST Valgus Test: Varus Test: Joint line tenderness: Tiesha test: hyper flexion test: Desai Compression: Hip quadrant test: JASSI test: FADIR test: Scour test: Trochanteric Bursitis Test- Bursitis: positive if more pain with resisted hip abduction while leg is in abducted position Glute med/ min tendinopathy: positive if pain with resisted abduction is the same in abducted and adducted position : JOINT MOBILITY/PALPATION TX: Assessment Assessment/Impression PATIENT IS A [address] JERMAN ROSARIO SCHEDULED FOR LEFT SUYAPA D/T SEVERE OA ON 07/20/22. PMHX INCLUDES BUT NOT LIMITED TO LEFT TKA, HYSTERECTOMY, ARTHRITIS, DEPRESSION, H/O LONG QT WAVE. PATIENT LIVES ALONE WITH 2 CATS IN A 2 STORY HOME WITH 4 STEPS TO ENTERING REPORTING BILATERAL RAILING AND >10STEPS TO 2ND FLOOR AND BASEMENT WITH HAND RAIL ON LEFT ASCENDING STEPS. HER BEDROOM AND TUB SHOWER ARE LOCATED ON THE FIRST FLOOR WITH A WALK IN SHOWER LOCATED ON THE 2ND FLOOR. SHE PLANS TO CLEAN UP IN THE SINK UNTIL SHE IS ALBE TO SAFELY ASCEND/DESCEND STEPS TO 2ND FLOOR. SHE WILL HAVE HER DTR PICK HER UP FROM HOSPITAL AND STAY 3 DAYS THEN HER SON WILL COME AND STAY 3 DAYS TO ASSIST IN HER POST OPERATIVE CARE. SHE IS CONCERNED THAT SHE WILL NOT BE ABLE TO DRIVE THE 2ND WEEK AFTER SURGERY AND INQUIRED ABOUT HOME HEALTH CARE. WE DISCUSSED THE HOME BOUND STATUS AND THE AVAILABLILITY OF COMPANIES THAT SERVICE HER AREA. SHE HAS A LIST OF COMPANIES AND WILL CALL THEM TO SEE IF THEY WOULD SEE HER FOR SHORT TERM BEFORE TRANSITIONING TO OUTPATIENT. SHE DOES INDICATE THAT HER NEIGHBOR CAN DRIVE HER CARE AND BRING TO OUTPATEINT THERAPY SHOULD SHE NEED TO. TODAY, WE DISCUSSED THE POST OPERATIVE CARE OF THE INCISION /BANDAGE WELL S/S OF INFECTION. WE DISCUSSED FALL PREVENTION, KEEPING HER PATHWAY CLEAR, AND GRAB BARS IN BATHROOM ALONG WITH NON SKID MAT FOR TUB WHEN SHE IS ABLE. SHE REPORTS HAVING ADAPTED MUCH HER LIFE D/T CHRONIC PAIN THAT WAS INITIALLY BELIEVED TO BE HER KNEE BUT XRAYS REVEALED SEVERE OA OF BOTH HIPS. SHE PARTICIPATED IN A SHORT TERM OF PHYSICAL THERAPY TO ADDRESS HER LUMBAR AND BLE MOBLITY, STRENGTH, AND FUNCTIONAL MOBILITY. SHE WILL TRANSITION TO JUST HER LEFT HIP WITH GOALS MET FOR PREVIOUS PHYSICAL THERAPY. WE REVIEWED HER THER EX WITH A GREAT UNDERSTANDING PROVIDED THROUGH TEACH BACK. SHE IS INSTRUCTED TO CONTINUE WITH HER PREVIOUS HEP AND ADD THESE EXERCISE TO ALEKS ROUTINE. PATIENT WILL, NO DOUBT, HAVE A GREAT OUTCOME SHE IS MOTIVATED AND COMPLIANT WITH HER HEP. SHE IS SCHEDULED FOR HER FIRST VISIT POST OPERATIVELY AND WILL REASSESS MOTION AT THAT TIME. PATIENT VERBALIZED UNDERSTANDING TO ALL SKILLED INSTRUCTION AND AGREEABLE TO POC AND FREQ. Primary Functional Limitations AMB TRANSFERS PROLONGED STDG STAIRS Plan of Care Rehabilitation Potential Good Physical Therapy Goals ST. PATIENT WILL BE INDEPENDENT WITH HER HEP IN 1 WEEK 2. PATIENT WILL VERBALIZE A GOOD UNDERSTANDING THROUGH TEACH BACK OF S/S OF INFECTION IN 1 WEEK 3. PATIENT WILL VERBALIZE A GOOD UNDERSTANDING THROUGH TEACH BACK OF FALL PREVENTION IN 1 WEEK. REASSESS GOALS POST OPERATIVELY Coordination/Communication With Referral Source Treatment Plan/Direct Interventions Electrical Stimulation,Gait Training,Ice/Cold/ Vasopneumatic,Joint Mobilization,Manual Therapy, Neuromuscular Re-ed,Self-Care/ Home Management,Therapeutic Activities,Therapeutic Exercises Frequency/Duration 1W8 (POST OP) Patient Will Be Discharged From Therapy Completion of LTG(s), Independent w/HEP Discharge Plan Comments PATIENT WILL BE DISCHARGED TO SELF WHEN GOALS MET OR MAX POTENTIAL ACHIEVED Evaluation Billing Untimed Code Treatment Minutes 20 PT Eval No Charge No Complexity Low Certification Information Initial Certification Date 07/13/22 Ending Certification Date 10/05/22 Provider Signature Shows Agreement With POC & Medical Necessity Physician Signature & Date Requested Please Sign/Date Here Physician Comment/Change : Physician NPI Number #
--- NOTE | 2022-09-01 15:58 | PT.OPDNX ---
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 092A Subjective Subjective PATIENT RETURNS TODAY WITH REPORTS OF BEING ABLE TO WALK W/O HER CANE NOT ONLY IN THE HOME BUT LIMITED DISTANCES IN THE COMMUNITY. SHE STATES,I AM REALLY DOING WELL. I THINK NEXT VISIT WILL BE MY LAST. Pain Comments 0/10 Preferred Name ERIN Precautions Treatment Precautions/Contraindications ANTERIOR HIP PRECAUTIONS: NO HIP ER >NEUTRAL, NO HIP EXT > NEUTRAL Home Exercise Home Exercise Comments REVIEWED HER HEP AND BEGAN CANE TRAINING TO CONTINUE AT HOME BUT CONTINUE TO USE FWW FOR COMMUNITY AMB Objective Other/Pertinent Objective KNEE ROM Flexion: WNL Extension: WNL HIP AROM : SUPINE Flexion: 118 Extension: NT Internal Rotation: NT External Rotation NT Abduction: 22 LLE MMT: Hip flexion: L 3-/5 Hip abduction: L 3-/5 Hip extension: L NT Knee flexion: L4-/5 Knee extension: L 4-/5 Patient Instructed in Risks/Benefits No Therapeutic Exercise Therapeutic Exercise Minutes (minutes) 45 Therapeutic Exercise: To Restore NUSTEP X 5 MIN Functional Status HEEL SLIDES X 1MIN SUPINE HEEL SLIDES X 10 SUPINE HIP ABD X 10 SUPINE TKE X 10 HOLD 3 LONG SIT HAMSTRING STRETCH 5 X 15 SEC SEATED GROIN STRETCH 5 X 15 SEC SEATED HR/TR X 1MIN SEATED KNEE EXT X 1MIN SEATED MARCHING X 1MIN STS WITH EMPHASIS ON EQUAL WT DISTRIBUTION X 5 STDG BHR X 15 STDG HIP ABD X 15 STDG HIP FLEX X 15 Treatment Minutes Timed Code Treatment Minutes 45 Total Treatment Time 45 Billing Units Therapeutic Exercise Units 3 Assessment/Impression Assessment/Impression PATIENT RETURNS TODAY WITH REPORTS OF MUCH IMPROVED GAIT W/O HER SPC NOT ONLY IN HER HOUSE BUT ALSO LIMITED ACTIVITIES OUTSIDE HER HOME. SHE TOLERATED TREATMENT GREAT TODAY WITH CONTINUED CHALLENGES WITH HIP ABD NOT ONLY DURING STANDING BUT ALSO IN SUPINE. I INSTRUCTED HER TO MAKE SURE THAT SHE IS GETTING THIS EXERCISE IN AT HOME WELL DESPITE IT BEING CHALLENGING. ADDITIONALLY, I HAVE HER SIDELYING PERFORMING A CRAB TO ADD LATERAL HIP STRENGTHENING. DISCHARGE PLANNING FOR NEXT VISIT PER PATIENT REQUEST. Plan of Care Physical Therapy Goals ST. PATIENT WILL BE INDEPENDENT WITH STEPS USING RAILING AND RECIPROCAL GAIT IN 4 WEEKS 2. PATIENT WILL AMB COMMUNITY DISTANCES (1000FT) INDEPENDENTLY WITH SPC IN 4 WEEKS 3. PATIENT WILL DEMONSTRATE 4- /5 WITH LLE TO PERFORM HER IADL'S SAFELY IN 4 WEEKS. LTG 1.PATIENT WILL BE INDEPENDENT WITH HER HEP AND DEMONSTRATE SELF PROGRESSION IN 8-10 WEEKS 2. PATIENT WILL BE ABLE TO RETURN WALKING FOR EXERCISE FOR 30 MIN WITH OR WITHOUT SPC IN 8-10 WEEKS. 3. PATIENT WILL SCORE </14 SEC ON THE TUG TO DEMONSTRATE A REDUCED RISK FOR FALLS IN 8-10 WEEKS. Daily Plan of Care Discharge Recertification Information Provider Signature Shows Agreement With POC & Medical Necessity Discharge Note Discharge Summary PATIENT IS A [address] ROSARIO [id number] LEFT ANTERIOR APPROACH HIP ATHROPLASTY ON 07/20/22. SHE HAS PARTICIPATED IN A COMPREHENSIVE AND INDIVIDUALIZED PROGRAM FOR SYMPTOM MGMT, ROM, STRENGTHENING, GT, AND FUNCTIONAL BALANCE AND MOBILITY TRAINING. SHE HAS PROGRESSED NICELY OVER THE COURSE OF HER CARE IMPROVING FROM 118 HIP FLEX AND 22 HIP ABD TO WNL'S ALONG WITH HIP STRENGTH FROM 3/5 TO 4+/5 EXCEPT HIP ABD AT 4-/5 ( SIDELYNG). SHE NO LONGER NEEDS AN ASSISTIVE DEVICE FOR ANY AMB AND HAS RETURNED TO WALKING FOR EXERCISE IN THE COMMUNITY. SHE AMB WITH NO NOTICEABLE ANTALGIC GAIT MANAGING BOTH STAIRS AND UNEVEN SURFACES WELL. SHE IS CONCERNED THAT HER LUMBAR REGION AND RIGHT SHOULDER HAVE NOT BEEN GETTING THE WORK THEY NEED SO WE SPENT OUR VISIT REVIEWING THE HIP EXERCISES THAT SHOULD REMAIN A PART OF HER DAILY PROGRAM AND COMBINED BOTH HER LUMBAR AND UPPER TRUNK INTO THE MIX TO HAVE ONE COMPREHENSIVE PROGRAM. SHE PERFORMED EA WELL TODAY W/O CORRECTIONS NEEDED AND ENCOURAGED TO DEVISE A PARTICULAR TIME TO PERFORM THEM DAILY TO KEEP HER CONSISTENCY. SHE VERBALIZED A GOOD UNDERSTANDING OF NOT ONLY HER CURRENT PROGRAM BUT ALSO HOW TO PROGRESS. SHE DOES NOT HAVE ANOTHER APPT WITH THE SURGEON UNLESS SHE HAS PROBLEMS AND HAS MET ALL HER GOALS FOR PHYSICAL THERAPY. SHE IS COMPLETE AGREEMENT WITH DISCHARGE TODAY TO AN INDEPENDENT HEP. Recommendations/Reason for Discharge Met All Therapy Goals Discharge Instructions CONTINUE WITH HEP
== END 2022-10-20 09:53 | disposition home or self-care (01) ==
PROVIDERS: PCP Internal Medicine; Visit Provider Orthopaedic Surgery Sports Medicine
DX: M16.12 Unilateral primary osteoarthritis, left hip (principal); Z51.89 Encounter for other specified aftercare
CPT/HCPCS: 97110; 97161; 97164